=== PATIENT | female | born 1945 | race Caucasian/White ===

== ENCOUNTER 2019-01-16 10:07 | Inpatient (IN) ==
[2019-01-16] MEDS ORDERED: MORPHINE IM ONE (10:21)
[2019-01-16] MEDS ORDERED: ZOFRAN IM ONE (10:22)
--- NOTE | 2019-01-16 10:50 | Diag Imaging Result Doc PS360 ---
EXAM: XRAY HIP UNILATERAL RT HISTORY: hip pain TECHNIQUE: Right hip, two views COMPARISON: None. FINDINGS: No fracture. No dislocation. No significant joint space narrowing. No other bony and normality. IMPRESSION: Negative exam. Electronically signed by Jacob Castañeda 01/16/2019 10:48 AM
--- NOTE | 2019-01-16 10:53 | Diag Imaging Result Doc PS360 ---
EXAM: LUMBAR SPINE HISTORY: back pain TECHNIQUE: AP and lateral with obliques, six views COMPARISON: None. FINDINGS: There is mild scoliosis. Prominent degenerative bone spurring. Approximately 50% compression fracture to the L4 vertebra. No other compression fracture. No subluxation. Severe atherosclerosis. The gallbladder has been removed. IMPRESSION: Mild scoliosis with prominent degenerative changes and a compression fracture to the L4 vertebra. Electronically signed by Jacob Castañeda 01/16/2019 10:50 AM
[2019-01-16 12:01] LABS: BASO# 0.04 X1000 (0.0-0.2); BASO% 0.5 % (0.0-0.8); EOS% 1.3 % (0.0-10.0); HEMATOCRIT 42.5 % (37.0-47.0); HEMOGLOBIN 14.5 g/dL (12.0-16.0); IMM GRAN# 0.01 X1000 (0.0-0.04); IMM GRAN% 0.1 % (0.0-0.5); LYMPH# 0.83 X1000 (1.2-3.4); LYMPH% 10.6 % (20.5-51.1); MCH 31.1 PG (27-31); MCHC 34.1 g/dL (33-37); MCV 91.2 FL (81-99); MONO# 0.72 X1000 (0.11-0.59); MONO% 9.2 % (1.7-9.3); MPV 10.7 FL (7.4-10.4); NEUT% 78.3 % (42.2-75.2); PLT 218 X1000 (130-400); RBC 4.66 XMIL (4.2-5.4); RDW 12.7 % (11.5-14.5)
[2019-01-16 12:12] LABS: AGAP 11; ALBUMIN 4.1 g/dL (3.5-5.0); ALKALINE PHOSPHATASE 76 U/L (32-104); BUN 18 mg/dL (8-22); CALCIUM 8.5 mg/dL (8.8-10.2); CHLORIDE 106 mmol/L (98-107); CK PROFILE 106 U/L (24-173); COSMO 287; CREATININE 0.9 mg/dL (0.5-0.9); ESTIMATED GFR > 60; GLUCOSE 106 mg/dL (70-104); GOT 19 U/L (10-30); GPT 17 U/L (10-36); INR 0.92; POTASSIUM 3.6 mmol/L (3.5-5.1); PROTIME 12.8 Seconds (11.0-16.0); SODIUM 143 mmol/L (136-145); TCO2 26 mmol/L (25-35); TOTAL PROTEIN 6.4 g/dL (6.3-8.3)
--- NOTE | 2019-01-16 12:39 | Diag Imaging Result Doc PS360 ---
CHEST-PORTABLE - 01/16/2019 INDICATION: fall, syncope COMPARISON: 06/27/2017 FINDINGS: The lungs are normally expanded and clear. Heart size and mediastinal contours are normal. No pneumothorax or pleural effusion. There is a stable left-sided dual-chamber pacemaker in good position. IMPRESSION: Negative exam. Electronically signed by Santana Mcdonnell 01/16/2019 12:36 PM
[2019-01-16 13:06] LABS: URINE SOURCE CLEAN CATCH
[2019-01-16 13:19] LABS: BILIRUBIN URINE NEGATIVE (NEGATIVE); BLOOD URINE 1+ (NEGATIVE); CLARITY SL. CLOUDY (CLEAR); COLOR YELLOW; GLUCOSE URINE NEGATIVE (NEGATIVE); KETONE URINE TRACE mg/dL (NEGATIVE); LEUKOCYTES URINE 2+ (NEGATIVE); NITRITE URINE NEGATIVE (NEGATIVE); PH URINE 6.5; PROTEIN URINE 1+(30 mg/dL) mg/dL (NEGATIVE); UROBILINOGEN URINE 4 mg/dL
[2019-01-16 13:21] LABS: URINE BACTERIA 3+ /HFP; URINE CAST NONE SEEN /LPF; URINE CRYSTAL NONE SEEN /HPF; URINE EPITHELIAL CELLS >10 /HPF (<10); URINE RBC <10 /HPF (<10); URINE WBC 20-40 /HPF (<10); URINE YEAST NONE SEEN /HPF
--- NOTE | 2019-01-16 13:24 | EKG Report ---
Test Performed on : 01/16/2019 11:54:29 AM Test Reason : syncope Blood Pressure : / mmHG Vent. Rate : 069 BPM Atrial Rate : 069 BPM P-R Int : 136 ms QRS Dur : 070 ms QT Int : 422 ms P-R-T Axes : 077 052 075 degrees QTc Int : 452 ms Normal sinus rhythm. Nonspecific ST abnormality Abnormal ECG When compared with ECG of 27-JUN-2017 14:55, No significant change was found Confirmed by Carlos Hampton MD ([id number]), make up editor Estefany Alonso ([id number]) on 01/19/2019 2:04:26 PM
[2019-01-16] MEDS ORDERED: TORADOL IV ONE ×2 (13:41→15:00)
--- NOTE | 2019-01-16 14:41 | HISTORY AND PHYSICAL ---
CHIEF COMPLAINT: Back pain. HISTORY OF PRESENT ILLNESS: Mrs. Hernandez is a pleasant 73-year-old female with a history of sinus node dysfunction status post permanent pacemaker, who was discharged from [facility] yesterday after having a syncopal episode and being thoroughly evaluated with no discernible cause per family report. She was complaining of back pain in [place] and a x-ray was done and she was found to have a lumbar spine compression fracture for which she was given a back brace for and discharged yesterday. Unfortunately, she could not tolerate the pain and came back to the ER today. She has pain shooting down the left leg and in the back in the lumbar region. She has not had any new episodes of syncope or chest pain, no shortness of breath or any other issues. In the ER, she had an L-spine x-ray, which showed compression fracture of the L4 vertebra. Hip x-ray was negative. Chest x-ray was negative, and her EKG showed sinus rhythm without acute ST abnormalities, and her laboratory data is unremarkable. She is going to be admitted for intractable pain. PAST MEDICAL HISTORY: 1. Known recent L4 compression fracture. 2. Recent syncopal episode hospitalized at [facility] in [place], [place]. 3. Sinus node dysfunction status post pacemaker. 4. Hypothyroidism. 5. Hyperlipidemia. 6. GERD. 7. History of dementia. PAST SURGICAL HISTORY: She has had a pacemaker placement, appendectomy, cholecystectomy. SOCIAL HISTORY: She is . Her at the bedside as well as her daughter. She denies tobacco, alcohol, or drug use. FAMILY HISTORY: Noncontributory. REVIEW OF SYSTEMS: A 14-point review of systems is found to be negative with the exception of the HPI. ALLERGIES: No known drug allergies. HOME MEDICATIONS: Not yet compiled by the nursing staff. PHYSICAL EXAMINATION: VITAL SIGNS: Blood pressure is 169/68, heart rate is 76, respiratory rate is 16, O2 saturation 96% on room air, temperature is 97.5. GENERAL: This is an elderly female lying in the hospital bed in no acute distress. NEUROLOGICAL: She is awake, alert, oriented. Follows commands without focal deficits. HEENT: Head is atraumatic, normocephalic. Pupils are equal, round, and reactive to light. Oral mucosa is moist. NECK: Trachea is midline. There is no JVD. CHEST: Clear to auscultation. CARDIOVASCULAR: Regular rate and rhythm. S1 and S2 is noted. GASTROINTESTINAL: Soft, nondistended, nontender. Bowel sounds positive. EXTREMITIES: No edema. Pulses 1+ bilaterally. DIAGNOSTIC DATA: L-spine x-ray shows L4 compression fracture. Hip x-ray is negative. Chest x-ray is negative. EKG sinus rhythm, no acute ST-T wave abnormality. LABORATORY DATA: Reviewed and unremarkable. Her urine is cloudy with 2+ urine WBCs but greater than 10 epithelial cells. ASSESSMENT AND PLAN: 1. Intractable pain secondary to lumbar spine compression fracture: She already has a back brace. Will continue IV pain medication and add Toradol, consult physical therapy. 2. Recent syncopal episode: Will try to obtain records from [facility] and see if they had her pacemaker evaluated and what their recommendations were, if needs be we will consult Cardiology, however, she denies any chest pain or shortness of breath or new episodes of syncope since the last episode. 3. Hypertension. Continue home medications once reconciled. 4. Hyperlipidemia. Will continue home medications once reconciled. 5. Deep venous thrombosis prophylaxis with sequential compression devices and TEDs. Further recommendations to follow. Dictated by REYNA Miller for J Luis Vyas MD cc: REYNA Miller MD
[2019-01-16 15:23] LABS: BILIRUBIN URINE NEGATIVE (NEGATIVE); BLOOD URINE 1+ (NEGATIVE); CLARITY CLEAR (CLEAR); COLOR YELLOW; GLUCOSE URINE NEGATIVE (NEGATIVE); KETONE URINE TRACE mg/dL (NEGATIVE); LEUKOCYTES URINE NEGATIVE (NEGATIVE); NITRITE URINE NEGATIVE (NEGATIVE); PH URINE 6.5; PROTEIN URINE NEGATIVE (NEGATIVE); UROBILINOGEN URINE 4 mg/dL
[2019-01-16 15:29] LABS: URINE SOURCE CATH
[2019-01-16 15:30] LABS: URINE BACTERIA 1+ /HFP; URINE CAST NONE SEEN /LPF; URINE CRYSTAL NONE SEEN /HPF; URINE EPITHELIAL CELLS <10 /HPF (<10); URINE WBC <10 /HPF (<10); URINE YEAST NONE SEEN /HPF
--- NOTE | 2019-01-16 17:09 | PROVIDER DOCUMENTATION ---
This chart was entered by Carolyn Wing Scribe, acting as scribe for Jessica Cancino MD. HPI-Musculoskeletal Pain/Inj - GENERAL Stated Complaint: BACK PAIN Time Seen by Provider: 01/16/19 10:27 Source: patient, family ( and daughter) - HX OF PRESENT ILLNESS-MUSKULOSKELTAL Nature of Presenting Problem: 73 yof presents to ED by EMS cc back pain and not being able to walk or sit upright because of it for 1 week. Pt states she had syncope episode 1 week ago while in [place] and when they tried to get her out of the car at the hospital, she fractured her back. Pt states she has a compression fracture of L4. Pt states pain is constant, sharp and radiates down right leg. Family is at bedside and state they are her to see if she can get rehab, home health and/or physical therapy. Pt has hx of thyroid disease, pacemaker, HTN and dementia. Quality of Pain: reports: sharp Severity in ED: severe Onset/Duration: 1 week ago Timing: still present, constant Modifying Factors: improves with: lying down. worse with: movement Any recent injury?: Yes Locality of Occurance: Other Similar Symptoms Previously?: No Recently seen or treated by another doctor?: Yes Review of Systems - Adult - REVIEW OF SYSTEMS - ADULT Constitutional: reports: see HPIdevang. denies: chills, fever Eyes: reports: no symptoms reported Ears, Nose, Mouth & Throat: reports: no symptoms reported Cardiovascular: reports: no symptoms reported Respiratory: reports: no symptoms reported Gastrointestinal: reports: no symptoms reported Genitourinary: reports: no symptoms reported Musculoskeletal: reports: see HPI, back pain. denies: neck pain Integumentary: reports: no symptoms reported Neurological: reports: no symptoms reported Psychiatric: reports: no symptoms reported Endocrine: reports: no symptoms reported Hematologic/Lymphatic: reports: no symptoms reported Allergic/Immunologic: reports: no symptoms reported All Other Systems: Reviewed and Negative Past History - Adult - PAST MEDICAL HISTORY-ADULT Review of Records: reports: Nursing Assessment Review, Medications Reviewed, Social history reviewed & non-contributory. Major Childhood Illnesses: reports: denies history Cardiovascular: reports: HTN, hyperlipidemia, pacemaker Respiratory: reports: denies history Gastrointestinal: reports: GERD Obstetrical/Gynecological: reports: denies history Genitourinary: reports: denies history Musculoskeletal: reports: denies history Neurological: reports: denies history Endocrine/Immune: reports: thyroid disorder Other Conditions: reports: denies history - PRIOR SURGERIES/PROCEDURES Surgical/Procedure History: reports: appendectomy, cholecystectomy, pacemaker - IMMUNIZATION STATUS Childhood Immunizations: See Nurse Assessment Flu Vaccine: See Nurse Assessment - FAMILY HISTORY Family History: reviewed, not pertinent - SOCIAL HISTORY Smoking: denies Physical Exam-Injury Related - Physical Exam-Injury Related Initial Vital Signs Reviewed: Yes General Appearance: appears well, alert. negative: anxious, combative Eyes: PERRL/EOMI, pink conjunctivae. negative: photophobia Head, Ears, Nose, Mouth & Throat: moist mucous membranes, normal ENT inspection. negative: angioedema Neck: non-tender, full range of motion, supple, normal inspection. negative: pain with axial compression, Brudzinski's sign Respiratory: chest non-tender, lungs clear, normal breath sounds, no pleuratic chest pain, no respiratory distress, no accessory muscle use. negative: crackles, rales, rhonchi Cardiovascular: normal peripheral pulses, regular rate, rhythm, no edema, no gallop, no JVD, no murmur. negative: bradycardia, tachycardia Abdominal Exam: normal bowel sounds, non tender, soft, no organomegaly. negative: rigid, rebound, tenderness Lymphatic: no adenopathy. negative: striations Integumentary: normal color, warm/dry. negative: diaphoresis, jaundice Progress - PLAN OF CARE/RESULTS Progress/Plan/Lab Results: Vital Signs - 8 hr 01/16/19 10:07 Temperature 97.1 F L Pulse Rate 72 Respiratory Rate 16 Blood Pressure 165/072 O2 Sat by Pulse Oximetry 97 Result Diagrams: 01/16/19 11:45 01/16/19 11:45 - EKG 1 Time of EKG reading by physician:: 11:54 EKG Read and Signed by:: Jessica Cancino EKG Interpretation (*Must complete 3 of following elements*): Abnormal Rate: 69 Rhythm: nsr [place]: normal QRS: normal FL Interval: normal ST Wave: non-specific ST changes - CONSULTS/PCP/HOSPITALIST Notification #1 *Consult/PCP/Hospitalist*: [place] Time Discussed: 11:10 Consult Disposition: Will see in ED, Admit Departure - Departure Date of Disposition Decision: 01/16/19 Time of Disposition Decision: 11:29 DIAGNOSIS: Compression fracture, Back pain Disposition: ADMITTED INPATIENT 09 Certified Medical Emergency: Emergent Condition: Stable - Critical Care Note This patient required my direct & personal management of CC.: No Attestation - Physician/ ELISABET Attestation Patient care was provided by Advanced Practice Provider:: No The physician spent face to face time with patient:: Yes Advanced Practice Provider documentation review:: Supervising physician onsite and consulted in the evaluation and care of this patient. The physician did have a face to face encounter with the patient. This chart was documented by the indicated scribe, (Carolyn Wing Scribe) and accurately reflects the services I performed and decisions made by me, Jessica Cancino MD, as attested by the provider's signature.
[2019-01-16] MEDS: MORPHINE IV PRN (22:04)
[2019-01-17] MEDS: MORPHINE IV PRN (03:30)
[2019-01-17] MEDS ORDERED: BLISTEX MEDICATED BERRY LIP BALM TOP PRN (06:30)
[2019-01-17] MEDS ORDERED: MOTRIN PO PRN (06:38)
[2019-01-17 06:39] LABS: HEMATOCRIT 42.1 % (37.0-47.0); HEMOGLOBIN 14.3 g/dL (12.0-16.0); MCH 31.2 PG (27-31); MCV 91.9 FL (81-99); MPV 10.5 FL (7.4-10.4); RBC 4.58 XMIL (4.2-5.4); RDW 12.8 % (11.5-14.5); WBC 7.62 X1000 (4.8-10.8)
[2019-01-17 07:05] LABS: AGAP 13; BUN 20 mg/dL (8-22); CALCIUM 8.7 mg/dL (8.8-10.2); CHLORIDE 104 mmol/L (98-107); COSMO 286; CREATININE 0.8 mg/dL (0.5-0.9); ESTIMATED GFR > 60; GLUCOSE 100 mg/dL (70-104); MAGNESIUM 1.8 mg/dL (1.5-2.7); POTASSIUM 3.8 mmol/L (3.5-5.1); SODIUM 142 mmol/L (136-145); TCO2 25 mmol/L (25-35)
[2019-01-17] MEDS: CITRACAL + D PO SCH (07:59)
[2019-01-17] MEDS: SYNTHROID PO SCH (07:59)
[2019-01-17] MEDS: THERA M PLUS PO SCH (08:00)
[2019-01-17] MEDS: KLOR-CON PO SCH (08:00)
[2019-01-17] MEDS: PROTONIX PO SCH (08:00)
[2019-01-17] MEDS: SOLU-MEDROL IV SCH ×2 (09:14→16:39)
[2019-01-17] MEDS: NORCO-5 PO PRN (12:04)
[2019-01-17] MEDS: PROSCAR PO SCH (22:01)
[2019-01-17] MEDS: ZOCOR PO SCH (22:02)
[2019-01-17] MEDS: ARICEPT PO SCH (22:02)
--- NOTE | 2019-01-17 23:15 | PROGRESS NOTE ---
DATE: 01/17/2019 SUBJECTIVE: Patient appears to be pleasantly well pain controlled. Her family does not note any current problems. Unfortunately, her dementia makes her entire history unreliable. PHYSICAL EXAMINATION: Vital Signs: Temperature 98.7 degrees, pulse 84, respiratory 18, BP 157/63. General: Patient is awake. Currently she is in no respiratory distress lying in bed. HEENT: Normocephalic. Neck: Supple. Cardiovascular: Regular rate. Chest: Clear, nonlabored. Abdomen: Soft, nondistended. Extremities: Moves all extremities. ASSESSMENT: 1. L4 compression fracture with intractable pain. We will continue pain medication and attempt to get better pain control. 2. Generalized weakness secondary to her back pain. Hopefully, as her back pain improves she will be able to ambulate. 3. Hypertension. 4. Hyperlipidemia. 5. Dementia. 6. Hypothyroidism. PLAN: We will continue patient in the hospital. Get Physical Therapy involved. Continue pain control. Further orders as needed. cc: J Luis Vyas MD
--- NOTE | 2019-01-18 00:06 | HISTORY AND PHYSICAL ---
ADDENDUM: Patient seen and examined by myself on the while in the ER. Discussed with the family her current clinical issues. She has an L4 compression fracture with an unknown fall. Does have a known history of dementia. We will admit her to the hospital and attempt pain control and we will follow. Please see full note dictated by nurse practitioner. cc: J Luis Vyas MD
[2019-01-18] MEDS: SOLU-MEDROL IV SCH ×3 (01:00→16:28)
[2019-01-18] MEDS: PROTONIX PO SCH (06:16)
[2019-01-18] MEDS: SYNTHROID PO SCH (06:16)
[2019-01-18 06:56] LABS: HEMATOCRIT 42.1 % (37.0-47.0); HEMOGLOBIN 14.4 g/dL (12.0-16.0); MCH 30.7 PG (27-31); MCHC 34.2 g/dL (33-37); MCV 89.8 FL (81-99); MPV 11.2 FL (7.4-10.4); RBC 4.69 XMIL (4.2-5.4); RDW 12.2 % (11.5-14.5); WBC 14.9 X1000 (4.8-10.8)
[2019-01-18 07:33] LABS: AGAP 14; BUN 24 mg/dL (8-22); CALCIUM 9.2 mg/dL (8.8-10.2); CHLORIDE 103 mmol/L (98-107); COSMO 287; CREATININE 0.8 mg/dL (0.5-0.9); ESTIMATED GFR > 60; GLUCOSE 164 mg/dL (70-104); MAGNESIUM 1.9 mg/dL (1.5-2.7); SODIUM 140 mmol/L (136-145); TCO2 23 mmol/L (25-35)
[2019-01-18] MEDS: CITRACAL + D PO SCH (09:02)
[2019-01-18] MEDS: THERA M PLUS PO SCH (09:05)
[2019-01-18] MEDS: KLOR-CON PO SCH (09:05)
[2019-01-18] MEDS: NORCO-5 PO PRN ×3 (09:18→22:08)
[2019-01-18] MEDS: PROSCAR PO SCH (22:08)
[2019-01-18] MEDS: ARICEPT PO SCH (22:08)
[2019-01-18] MEDS: ZOCOR PO SCH (22:08)
[2019-01-19] MEDS: SOLU-MEDROL IV SCH (00:34)
--- NOTE | 2019-01-19 00:41 | PROGRESS NOTE ---
DATE: 01/18/2019 SUBJECTIVE: Patient has no complaints. She is confused, disoriented. Her notes that she seems to be in better spirits and seems to have less pain as she is moving her lower extremities much more frequently. PHYSICAL EXAMINATION: Vital Signs: Temperature 97.6 degrees, pulse 80, respiratory 18, BP 166/70. General: Patient is awake, alert, currently in no distress. HEENT: Normocephalic. Neck: Supple. Cardiovascular: Regular rate. Chest: Clear. Abdomen: Soft. Extremities: Moves all extremities. ASSESSMENT: 1. Intractable pain, improved. 2. Recent syncopal episode. 3. Hypertension. 4. Hyperlipidemia. 5. Dementia. PLAN: We will continue patient in the hospital. Continue pain control. Physical Therapy. We will hopefully be able to transition to rehab soon. We will continue her home medications. cc: J Luis Vyas MD
[2019-01-19] MEDS: SYNTHROID PO SCH (06:25)
[2019-01-19] MEDS: PROTONIX PO SCH (06:26)
[2019-01-19] MEDS: KLOR-CON PO SCH (08:09)
[2019-01-19] MEDS: THERA M PLUS PO SCH (08:09)
[2019-01-19] MEDS: NORCO-5 PO PRN ×2 (08:09→14:53)
[2019-01-19] MEDS: CITRACAL + D PO SCH (08:09)
[2019-01-19] MEDS ORDERED: PRINIVIL PO SCH (09:00)
[2019-01-19] MEDS ORDERED: SOLU-MEDROL IV SCH (13:00)
--- NOTE | 2019-01-19 13:29 | DISCHARGE SUMMARY ---
ADMISSION DATE: 01/16/2019 DISCHARGE DATE: 01/19/2019 ADMISSION DIAGNOSIS: 1. Intractable pain secondary to lumbar spine compression fracture. 2. Recent syncopal episode. 3. Hypertension. 4. Hyperlipidemia. 5. History of pacemaker. 6. Hypothyroidism. 7. Gastroesophageal reflux disease. 8. Dementia. DISCHARGE DIAGNOSIS: 1. Intractable pain secondary to lumbar spine compression fracture. 2. Recent syncopal episode. 3. Hypertension. 4. Hyperlipidemia. 5. History of pacemaker. 6. Hypothyroidism. 7. Gastroesophageal reflux disease. 8. Dementia. DIAGNOSTIC PROCEDURES AND FINDINGS: L-spine x-ray 01/16/2019: Mild scoliosis with prominent degenerative changes and a compression fracture at the L4 vertebra. Hip x-ray 01/16/2019: Negative exam. Chest x-ray 01/16/2019: Negative exam. EKG 01/16/2019: Normal sinus rhythm, nonspecific ST abnormality. CONSULTATIONS: None. HOSPITAL COURSE: Mrs. Hernandez is a 73-year-old female, who was recently discharged from [facility] with a syncopal episode. She reports at that time that a thorough diagnostic evaluation was done and there was no real etiology found for her syncope, again per her report. During that time, she was found to have a L4 compression fracture and was given a back brace and discharged home, however, when she got home, the pain was unbearable for her and she came to our facility for pain control. Ultimately, she was admitted for intractable pain. She has done well with pain medication, however, it is felt that she will need rehabilitation given her decreased mobility. She has not had any new episodes of syncope while hospitalized. She has been slowly strengthening with physical therapy and taking pain medicine, which has been controlling her pain well. Her vital signs are stable. She will be discharged to [facility] in [place]. DISCHARGE MEDICATIONS: Potassium chloride 10 mEq p.o. a.m., Citracal plus D 1 p.o. daily, Protonix 40 mg daily, Centrum Silver 1 daily, Synthroid 50 mcg daily, simvastatin 10 mg at bedtime, finasteride 5 mg at bedtime, donepezil 5 mg p.o. at bedtime, [place] 5 1 p.o. q.4 hours p.r.n. pain #20 tablet no refill, Motrin 400 mg p.o. q.4 hours as needed for pain. DISCHARGE ACTIVITY: Continue physical therapy under the discretion of [facility]. DISCHARGE DIET: Heart healthy. DISCHARGE VITALS: Blood pressure is 175/73, heart rate 92, respiratory rate 18, O2 saturation 95% on room air, temperature is 98.1. DISPOSITION AND OTHER DISCHARGE INSTRUCTIONS: The patient is discharged to [facility] in [place]. She is to continue therapy under their direction. She is to take all medications as prescribed and follow up with her PCP and distributing clerk as needed. She is to return to the ER or call 911 for worsening complaints or concerns. All questions answered. DISCHARGE TIME: Greater than 35 minutes. Dictated by REYNA Miller for J Luis Vyas MD cc: REYNA Miller MD
[2019-01-19 15:43] VITALS: BP 172/75
--- NOTE | 2019-01-19 16:00 | PROGRESS NOTE ---
DATE: 01/19/2019 SUBJECTIVE: The patient has no complaints. notes that she is moving a lot better than she was, but still very fatigued, tired, still having difficulty getting out of bed to the chair on her own. OBJECTIVE: Vital Signs: Temperature 98 degrees, pulse 92, respiratory rate 18, blood pressure 175/73. General: The patient is awake, alert. She is in no respiratory distress. HEENT: Normocephalic. Neck: Supple. Cardiovascular: Regular rate. Chest: Clear, nonlabored. Abdomen: Soft, nondistended, nontender. Extremities: Moves all extremities. Neurologic: No changes. ASSESSMENT: 1. Frequent falls. 2. Recent L4 compression fracture. 3. Right hip pain, likely more related to nerve pain from her L4 compression fracture. 4. Syncopal episode. 5. Hypothyroidism. 6. Hyperlipidemia. 7. Dementia. 8. Hypertension. PLAN: We will start her on lisinopril for blood pressure as it remains elevated. We will decrease her steroids. We will continue physical therapy. We will continue to follow. Hopefully, she can be discharge to rehab soon if a bed is available. cc: J Luis Vyas MD
--- NOTE | 2019-01-20 15:49 | DISCHARGE SUMMARY ---
ADMISSION DATE: 01/16/2019 DISCHARGE DATE: 01/19/2019 ADDENDUM: Patient seen and examined by myself. Full note dictated and discussed with nurse practitioner. On discharge patient is awake, alert. She is in no distress. She is confused but this is her baseline dementia. She is starting to move a little bit better. Still having pain in her back. Still having generalized weakness. We will transition her to rehab. No changes made in her chronic home medications. We will continue steroid tapering pack. Please see full. cc: J Luis Vyas MD
== END 2019-01-19 19:06 | DRG 544 ==
LOC: P.ED 10:07 → P.MEDSURG 10:08
PROVIDERS: ATTEND Family Medicine
CPT/HCPCS: 71010; 71045; 72110; 73502; 80048; 80053; 81001; 82550; 83735; 84484; 85025; 85027; 85610; 93005; 96372; 97163; 97530; 99285; A9270; J1885; J2270; J2405; J2920; J2930; S0138